=== PATIENT | male | born 1935 | race African-American/Black ===

== ENCOUNTER 2019-06-06 10:31 | Inpatient (IN) | payer OTHER ==
[~2019-06-06] VITALS: Ht 180.3 cm; Wt 64.6 kg
[2019-06-06 11:29] LABS: Urine Bacteria MANY /hpf (None Seen); Urine Blood 2+ /uL (Negative); Urine Specific Gravity 1.022 (1.001-1.035); Urine WBC 265 /hpf (0 - 3); Urine WBC Clumps PRESENT /hpf (None Seen)
[2019-06-06 11:32] LABS: Basophils # (auto) 0 uL; Basophils % (auto) 0.3 % (0.0-2.0); Eosinophils # (auto) 0 uL; Eosinophils % (auto) 0.6 % (0.0-7.0); Hemoglobin 11.6 g/dL (13.5-17.5); Lymphocytes # (auto) 1.4 uL; Lymphocytes % (auto) 24.2 % (10.0-50.0); Mean Corpuscular Hgb Conc. 33.1 g/dL (32.0-36.0); Mean Corpuscular Volume 90.8 fL (80.0-100.0); Monocytes # (auto) 0.5 uL; Neutrophils # (auto) 3.8 uL; Neutrophils % (auto) 65.9 % (37.0-80.0); Nucleated Red Blood Cells % 0.1 %; Platelet Count (auto) 238 10^3/uL (140-450); Red Blood Cells 3.85 10^6/uL (4.5-5.90); Red Cell Distribution Width 14.9 % (11.8-14.3); White Blood Cell 5.8 10^3/uL (4.4-10.8)
[2019-06-06 11:48] LABS: Partial Thromboplastin Time 26.1 sec (23.64-32.05)
[2019-06-06 11:57] LABS: Albumin 3.9 g/dL (3.4-5.0); Calcium 8.8 mg/dL (8.5-10.1); Magnesium 2.4 mg/dL (1.6-2.6); Potassium 3.5 mmol/L (3.5-5.1)
[2019-06-06 12:02] LABS: BUN/Creatinine Ratio 15.7; Bilirubin, Total 0.6 mg/dL (0.2-1.0); Total Protein 8.2 g/dL (6.4-8.2)
[2019-06-06] MEDS ORDERED: cefTRIAXone 1GM/50ML D5W 50 ML IV ONE ×2 (13:30→14:15)
[2019-06-06] MEDS ORDERED: MORPHINE SULF INJ 2 MG/ML SYRINGE 1ML IV PRN (14:15)
[2019-06-06] MEDS ORDERED: ONDANSETRON HCL 4 MG/2 ML VIAL IV PRN (14:15)
[2019-06-06] MEDS ORDERED: ACETAMINOPHEN 500 MG TAB PO PRN (14:15)
[2019-06-06] MEDS ORDERED: NITROGLYCERIN 0.4 MG SL TAB SL PRN (14:15)
[2019-06-06] MEDS ORDERED: TEMAZEPAM 15 MG CAP PO PRN (14:15)
[2019-06-06] MEDS: SODIUM CHLORIDE 0.9% 1,000 ML IV SCH (14:26)
[2019-06-06 16:31] VITALS: BP 111/76
--- NOTE | 2019-06-06 16:48 | NUR ---
Discontinue Telemetry as ordered by Dr. Rojas, keep on Med/Surg.
--- NOTE | 2019-06-06 17:46 | NUR ---
Telemetry admit from [facility] admitted to Telemetry unit after SBAR received. Patient oriented to Bety Moore, primary RN, unit, room, bed, and unit policies regarding patient care and visiting hours. Patient now on continuous telemetry monitoring, tele box # [id number] and telemetry reading on arrival to unit is [id number]. Patient placed on bedside oxygen, weighed by bedscale and encouraged to call if they need something. All questions and concerns addressed, patient verbalized understanding.
--- NOTE | 2019-06-06 18:38 | NUR ---
Urology consult Dr. yLons at bedside, patient is advised. Orders received. May not have the CBI from urology standpoint. Patient needs to follow up with urology in 2 weeks. Patient also refused de la cruz catheter insertion and said he is able to urinate good.
--- NOTE | 2019-06-06 20:00 | NUR ---
Opening Shift Note Assumed care of patient, awake and alert. No S/S of distress/SOB or pain. Instructed on POC and to call for assist PRN, will continue to monitor for changes Q1hr and PRN.
[2019-06-06 21:00] VITALS: BP 212/74
[2019-06-06] MEDS ORDERED: FAMOTIDINE 20 MG TAB PO SCH (22:00)
--- NOTE | 2019-06-06 22:50 | NUR ---
Continuation of Care Assumed care of patient from Nick RN for continuation of care. Patient lying in bed, eyes closed, respirations even and unlabored, appears asleep. No S/S of distress/SOB or pain. Bed in lowest locked position, side rails up x2, call light within reach. Instructed on POC and to call for assist PRN, will continue to monitor for changes Q1hr and PRN.
[2019-06-06 23:00] VITALS: BP 113/67
--- NOTE | 2019-06-06 23:00 | NUR ---
Blood pressure noted to be 212/74 with 65 heart rate. Blood pressure reassessed and found to be 113/67 with 58 heart rate. No s/s of distress. Will continue care.
[2019-06-07] MEDS: SODIUM CHLORIDE 0.9% 1,000 ML IV SCH ×2 (00:12→10:05)
[2019-06-07 04:30] VITALS: BP 119/76
[2019-06-07 05:36] LABS: Basophils # (auto) 0 uL; Basophils % (auto) 0.3 % (0.0-2.0); Eosinophils # (auto) 0.1 uL; Eosinophils % (auto) 2.3 % (0.0-7.0); Hematocrit 30.6 % (41.0-53.0); Hemoglobin 10.2 g/dL (13.5-17.5); Lymphocytes # (auto) 1.7 uL; Lymphocytes % (auto) 33.5 % (10.0-50.0); Mean Corpuscular Hemoglobin 30.2 pg (28.0-32.0); Mean Corpuscular Hgb Conc. 33.2 g/dL (32.0-36.0); Monocytes # (auto) 0.4 uL; Monocytes % (auto) 8.4 % (0.0-12.0); Neutrophils # (auto) 2.9 uL; Neutrophils % (auto) 55.5 % (37.0-80.0); Nucleated Red Blood Cells % 0.1 %; Platelet Count (auto) 203 10^3/uL (140-450); Red Blood Cells 3.37 10^6/uL (4.5-5.90); Red Cell Distribution Width 14.6 % (11.8-14.3); White Blood Cell 5.2 10^3/uL (4.4-10.8)
[2019-06-07 06:05] LABS: Potassium 4.8 mmol/L (3.5-5.1)
[2019-06-07 06:10] LABS: Calcium 8.1 mg/dL (8.5-10.1)
--- NOTE | 2019-06-07 07:05 | NUR ---
Closing Note Patient lying in bed, awake and alert. Bed in lowest locked position, side rails up x2, call light within reach. No s/s of distress. Care endorsed to dayshift RN.
--- NOTE | 2019-06-07 07:15 | NUR ---
ASSUMED CARE OF PATIENT FROM DISTRICT MANAGER IN TRAINING RN. PATIENT IN BED, AWAKE AND WATCHING TV AT INITIAL APPROACH. PATIENT IS PLEASANT AND COOPERATIVE WITH ASSESSMENTS. PATIENT DENIES PAIN AT THIS TIME. NO SIGNS OF ACUTE DISTRESS NOTED. WILL CONTINUE TO MONITOR FOR CHANGES.
[2019-06-07 08:00] VITALS: BP 130/68
[2019-06-07] MEDS ORDERED: cefTRIAXone 1GM/50ML D5W 50 ML IV SCH (09:00)
--- NOTE | 2019-06-07 09:30 | NUR ---
Jeanne Dorsey oracle application consultant keycase assembler today and returned call, made her aware that patient has consult for [facility] to arrange for all outpatient follow ups.
--- NOTE | 2019-06-07 10:00 | NUR ---
Patient's urine noted to be pale pink in color. Continue care.
[2019-06-07 11:15] VITALS: BP 130/68
--- NOTE | 2019-06-07 12:30 | NUR ---
PATIENT DISCHARGED HOME AT THIS TIME PER MD'S ORDER. DISCHARGE SUMMARY AND FOLLOW UP INSTRUCTION PROVIDED AND PATIENT VERBALIZED UNDERSTANDING. PATIENT DISCHARGED IN GOOD CONDITION AND WITH ALL PERSONAL BELONGINGS. NO PHYSICAL COMPLAINS REPORTED.
--- NOTE | 2019-06-09 12:49 | NUR ---
Discharge planning per SS consult, patient has orders for [facility] to arrange all out patient follow up. Referral faxed to [facility] for processing. [phone]
== END 2019-06-07 12:30 | disposition home health service (06) | DRG 690 ==
LOC: ER 10:31 → CENTRAL 10:32
PROVIDERS: ADMIT Internal Medicine; ATTEND Internal Medicine
DX: N13.6 Pyonephrosis (principal); F17.200 Nicotine dependence, unspecified, uncomplicated; N40.0 Benign prostatic hyperplasia without lower urinary tract symptoms; Z80.0 Family history of malignant neoplasm of digestive organs; R31.9 Hematuria, unspecified; Z90.49 Acquired absence of other specified parts of digestive tract; Z88.0 Allergy status to penicillin
CPT/HCPCS: 36415; 51702; 74176; 80048; 80053; 81001; 83735; 84154; 85025; 85610; 85730; 87086; 93005; 96365; G0378; J0696

== ENCOUNTER 2022-08-18 06:24 | Inpatient (IN) | payer OTHER ==
[~2022-08-18] VITALS: Ht 180.3 cm; Wt 68.8 kg
[2022-08-18 08:00] VITALS: BP 126/67
[2022-08-18] MEDS ORDERED: TAMS0.4C36 PO (08:24)
[2022-08-18] MEDS ORDERED: ONDANSETRON HCL 4 MG/2 ML VIAL IV PRN ×2 (08:30→09:00)
[2022-08-18] MEDS ORDERED: hydrALAZINE HCL 20 MG/ML VL IV PRN (08:30)
[2022-08-18 09:00] VITALS: BP 126/67
[2022-08-18] MEDS ORDERED: ACETAMINOPHEN 325 MG TAB PO PRN (09:00)
[2022-08-18] MEDS ORDERED: MORPHINE SULFATE INJ 2 MG/ml SYRG IV PRN (09:00)
[2022-08-18] MEDS ORDERED: HYDROcodone-ACET 5/325MG TAB PO PRN (09:00)
[2022-08-18] MEDS ORDERED: NITROGLYCERIN 0.4 MG SL TAB SL PRN (09:00)
[2022-08-18] MEDS ORDERED: DOCUSATE SOD 100 MG CAP PO PRN (09:00)
[2022-08-18 09:59] LABS: Basophils # (auto) 0 10 ^3/uL (0-0.2); Eosinophils # (auto) 0.1 10 ^3/uL (0-0.8); Monocytes # (auto) 0.5 10 ^3/uL (0-1.3); Neutrophils % (auto) 67.7 % (37.0-80.0)
[2022-08-18 10:01] LABS: Basophils % (auto) 0.3 % (0.0-2.0); Eosinophils % (auto) 1.2 % (0.0-7.0); Hematocrit 27.6 % (41.0-53.0); Hemoglobin 9.2 g/dL (13.5-17.5); Lymphocytes # (auto) 1.6 10 ^3/uL (0.4-5.4); Lymphocytes % (auto) 23.2 % (10.0-50.0); Mean Corpuscular Hemoglobin 28.1 pg (28.0-32.0); Mean Corpuscular Hgb Conc. 33.4 g/dL (32.0-36.0); Mean Corpuscular Volume 84.1 fL (80.0-100.0); Monocytes % (auto) 7.6 % (0.0-12.0); Neutrophils # (auto) 4.8 10 ^3/uL (1.6-8.6); Red Blood Cells 3.28 10^6/uL (4.5-5.90); Red Cell Distribution Width 21.9 % (11.8-14.3); White Blood Cell 7.1 10^3/uL (4.4-10.8)
[2022-08-18] MEDS ORDERED: VANCOMYCIN PER PHARMACY 0 MG IV SCH (10:15)
[2022-08-18 10:27] LABS: Albumin 2.2 g/dL (3.4-5.0); BUN/Creatinine Ratio 7.3; Bilirubin, Total 0.4 mg/dL (0.2-1.0); Calcium 8.3 mg/dL (8.5-10.1); Magnesium 2.4 mg/dL (1.6-2.6); Phosphorus 2.8 mg/dL (2.5-4.90); Potassium 4.1 mmol/L (3.5-5.1); Total Protein 7.2 g/dL (6.4-8.2)
[2022-08-18] MEDS: levoFLOXacin 250MG 50 ML IV SCH (10:31)
[2022-08-18] MEDS: PANTOPRAZOLE 40 MG TAB PO SCH (10:31)
[2022-08-18 13:00] VITALS: BP 131/62
[2022-08-18] MEDS: VANCOMYCIN 1GM/250ML 250 ML IV SCH (13:40)
[2022-08-18] MEDS: SODIUM CHLOR 0.9% PF (SALINE LOCK) 10ML VIAL/SYR IV SCH ×2 (14:07→21:07)
[2022-08-18 16:39] VITALS: BP 111/55
[2022-08-18 20:00] VITALS: BP 108/55
[2022-08-18 22:00] VITALS: BP 108/55
[2022-08-19 05:00] VITALS: BP_SYST 150
[2022-08-19] MEDS: SODIUM CHLOR 0.9% PF (SALINE LOCK) 10ML VIAL/SYR IV SCH ×3 (05:06→21:20)
[2022-08-19 05:55] LABS: Basophils # (auto) 0 10 ^3/uL (0-0.2); Eosinophils # (auto) 0.1 10 ^3/uL (0-0.8)
[2022-08-19 05:57] LABS: Basophils % (auto) 0.6 % (0.0-2.0); Eosinophils % (auto) 1.6 % (0.0-7.0); Hematocrit 26.7 % (41.0-53.0); Hemoglobin 8.9 g/dL (13.5-17.5); Lymphocytes # (auto) 1.8 10 ^3/uL (0.4-5.4); Lymphocytes % (auto) 26.4 % (10.0-50.0); Mean Corpuscular Hemoglobin 28.2 pg (28.0-32.0); Mean Corpuscular Hgb Conc. 33.5 g/dL (32.0-36.0); Monocytes # (auto) 0.6 10 ^3/uL (0-1.3); Monocytes % (auto) 8.1 % (0.0-12.0); Neutrophils # (auto) 4.4 10 ^3/uL (1.6-8.6); Neutrophils % (auto) 63.3 % (37.0-80.0); Red Blood Cells 3.17 10^6/uL (4.5-5.90); Red Cell Distribution Width 22.2 % (11.8-14.3); White Blood Cell 6.9 10^3/uL (4.4-10.8)
[2022-08-19 06:20] LABS: Potassium 4.3 mmol/L (3.5-5.1)
[2022-08-19 06:25] LABS: BUN/Creatinine Ratio 12.8; Calcium 8.4 mg/dL (8.5-10.1)
[2022-08-19 06:27] LABS: Bilirubin, Total 0.4 mg/dL (0.2-1.0); Total Protein 6.9 g/dL (6.4-8.2)
[2022-08-19] MEDS: VANCOMYCIN 1GM/250ML 250 ML IV SCH (06:47)
[2022-08-19 08:00] VITALS: BP 123/59
[2022-08-19 09:00] VITALS: BP 123/59
[2022-08-19] MEDS: levoFLOXacin 250MG 50 ML IV SCH (10:21)
[2022-08-19] MEDS: PANTOPRAZOLE 40 MG TAB PO SCH (10:21)
[2022-08-19 13:14] VITALS: BP 111/70
[2022-08-19 16:54] VITALS: BP 120/72
[2022-08-19 22:00] VITALS: BP 99/53
[2022-08-20] MEDS: VANCOMYCIN 1GM/250ML 250 ML IV SCH ×2 (00:29→21:22)
[2022-08-20 05:00] VITALS: BP 114/58
[2022-08-20] MEDS: SODIUM CHLOR 0.9% PF (SALINE LOCK) 10ML VIAL/SYR IV SCH ×3 (05:20→22:04)
[2022-08-20 06:44] LABS: Hemoglobin 9.4 g/dL (13.5-17.5)
[2022-08-20 06:49] LABS: Basophils # (auto) 0 10 ^3/uL (0-0.2); Basophils % (auto) 0.4 % (0.0-2.0); Eosinophils # (auto) 0.1 10 ^3/uL (0-0.8); Eosinophils % (auto) 1.5 % (0.0-7.0); Hematocrit 27.4 % (41.0-53.0); Lymphocytes # (auto) 1.9 10 ^3/uL (0.4-5.4); Lymphocytes % (auto) 28.2 % (10.0-50.0); Mean Corpuscular Hemoglobin 28.8 pg (28.0-32.0); Mean Corpuscular Hgb Conc. 34.1 g/dL (32.0-36.0); Mean Corpuscular Volume 84.5 fL (80.0-100.0); Monocytes # (auto) 0.5 10 ^3/uL (0-1.3); Monocytes % (auto) 7.6 % (0.0-12.0); Neutrophils # (auto) 4.2 10 ^3/uL (1.6-8.6); Neutrophils % (auto) 62.3 % (37.0-80.0); Red Blood Cells 3.24 10^6/uL (4.5-5.90); White Blood Cell 6.7 10^3/uL (4.4-10.8)
[2022-08-20 06:53] LABS: Red Cell Distribution Width 22.2 % (11.8-14.3)
[2022-08-20 07:03] LABS: BUN/Creatinine Ratio 12.8; Calcium 8.7 mg/dL (8.5-10.1); Potassium 5.3 mmol/L (3.5-5.1)
[2022-08-20 08:00] VITALS: BP 123/59
[2022-08-20 08:30] VITALS: BP 120/62
[2022-08-20] MEDS: PANTOPRAZOLE 40 MG TAB PO SCH (09:53)
[2022-08-20 13:00] VITALS: BP 103/54
[2022-08-20 17:00] VITALS: BP 108/58
[2022-08-20 22:00] VITALS: BP 113/52
[2022-08-21 05:00] VITALS: BP 118/65
[2022-08-21] MEDS: SODIUM CHLOR 0.9% PF (SALINE LOCK) 10ML VIAL/SYR IV SCH ×3 (06:15→21:44)
[2022-08-21 08:00] VITALS: BP 123/59
[2022-08-21 09:00] VITALS: BP 115/66
[2022-08-21] MEDS: PANTOPRAZOLE 40 MG TAB PO SCH (09:38)
[2022-08-21 13:43] VITALS: BP 107/68
[2022-08-21] MEDS ORDERED: LACT10PA2 PO (15:13)
[2022-08-21] MEDS ORDERED: BACDST PO (15:13)
[2022-08-21] MEDS ORDERED: SODIUM CHLORIDE 0.9% 1,000 ML IV ONE (15:30)
[2022-08-21 16:41] VITALS: BP 123/72
[2022-08-21] MEDS: VANCOMYCIN 1GM/250ML 250 ML IV SCH (17:15)
[2022-08-21 22:00] VITALS: BP 128/65
[2022-08-22 05:00] VITALS: BP 123/73
[2022-08-22] MEDS: SODIUM CHLOR 0.9% PF (SALINE LOCK) 10ML VIAL/SYR IV SCH ×3 (05:07→21:14)
[2022-08-22 09:40] VITALS: BP 128/70
[2022-08-22 12:21] LABS: Urine Bacteria NONE SEEN /hpf (None Seen); Urine Blood TRACE /uL (Negative); Urine Specific Gravity 1.007 (1.001-1.035); Urine WBC 1 /hpf (0 - 3)
[2022-08-22 12:51] VITALS: BP 106/70
[2022-08-22 14:15] LABS: BUN/Creatinine Ratio 16.1; Calcium 9.4 mg/dL (8.5-10.1); Potassium 4.4 mmol/L (3.5-5.1)
[2022-08-22] MEDS ORDERED: VANCOMYCIN 1GM/250ML 250 ML IV SCH (17:00)
[2022-08-22 17:12] VITALS: BP 121/68
[2022-08-22] MEDS: SULFAMETHOX W/TRIMETH(800/160MG) DS TAB PO SCH (21:15)
[2022-08-22 22:24] VITALS: BP 112/70
[2022-08-23 04:30] VITALS: BP 122/66
[2022-08-23 04:35] LABS: Urine Bacteria NONE SEEN /hpf (None Seen); Urine Blood Negative /uL (Negative); Urine Specific Gravity 1.008 (1.001-1.035); Urine WBC 1 /hpf (0 - 3)
[2022-08-23] MEDS: SODIUM CHLOR 0.9% PF (SALINE LOCK) 10ML VIAL/SYR IV SCH ×3 (05:27→21:34)
[2022-08-23 05:46] LABS: Basophils # (auto) 0 10 ^3/uL (0-0.2); Basophils % (auto) 0.8 % (0.0-2.0); Eosinophils # (auto) 0.1 10 ^3/uL (0-0.8); Eosinophils % (auto) 2.2 % (0.0-7.0); Hemoglobin 9.8 g/dL (13.5-17.5); Lymphocytes # (auto) 2.1 10 ^3/uL (0.4-5.4); Lymphocytes % (auto) 33.2 % (10.0-50.0); Mean Corpuscular Hemoglobin 28.7 pg (28.0-32.0); Mean Corpuscular Hgb Conc. 33.7 g/dL (32.0-36.0); Mean Corpuscular Volume 85.2 fL (80.0-100.0); Monocytes # (auto) 0.5 10 ^3/uL (0-1.3); Monocytes % (auto) 7.7 % (0.0-12.0); Neutrophils # (auto) 3.5 10 ^3/uL (1.6-8.6); Neutrophils % (auto) 56.1 % (37.0-80.0); Nucleated Red Blood Cells % 0.1 %; Red Blood Cells 3.41 10^6/uL (4.5-5.90); White Blood Cell 6.3 10^3/uL (4.4-10.8)
[2022-08-23 05:52] LABS: Red Cell Distribution Width 23.1 % (11.8-14.3)
[2022-08-23 05:53] LABS: Albumin 2.7 g/dL (3.4-5.0); Calcium 8.9 mg/dL (8.5-10.1); Potassium 4.4 mmol/L (3.5-5.1)
[2022-08-23 05:58] LABS: Bilirubin, Total 0.3 mg/dL (0.2-1.0); Total Protein 7.9 g/dL (6.4-8.2)
[2022-08-23 08:34] VITALS: BP 125/71
[2022-08-23] MEDS: SULFAMETHOX W/TRIMETH(800/160MG) DS TAB PO SCH ×2 (09:59→21:28)
[2022-08-23 13:13] VITALS: BP 122/68
[2022-08-23 16:41] VITALS: BP 110/59
[2022-08-23 20:00] VITALS: BP 114/66
[2022-08-23 22:00] VITALS: BP 114/66
[2022-08-24] MEDS: SODIUM CHLOR 0.9% PF (SALINE LOCK) 10ML VIAL/SYR IV SCH ×2 (04:55→14:24)
[2022-08-24 05:00] VITALS: BP 130/64
[2022-08-24 08:31] VITALS: BP 131/71
[2022-08-24] MEDS: SULFAMETHOX W/TRIMETH(800/160MG) DS TAB PO SCH (10:11)
[2022-08-24 13:04] VITALS: BP 128/62
== END 2022-08-24 15:50 | disposition home or self-care (01) | DRG 699 ==
LOC: TELE-CENTR 06:24 → CENTRAL 08-22 23:42
PROVIDERS: ADMIT Internal Medicine; ATTEND Internal Medicine
DX: T83.022A Displacement of nephrostomy catheter, initial encounter (principal); N13.6 Pyonephrosis; D75.839 Thrombocytosis, unspecified; I10 Essential (primary) hypertension; N32.9 Bladder disorder, unspecified; R31.9 Hematuria, unspecified; B95.61 Methicillin susceptible Staphylococcus aureus infection as the cause of diseases classified elsewhere; N13.9 Obstructive and reflux uropathy, unspecified; F03.90 Unspecified dementia, unspecified severity, without behavioral disturbance, psychotic disturbance, mood disturbance, and anxiety; Z20.822 Contact with and (suspected) exposure to COVID-19; Y83.8 Other surgical procedures as the cause of abnormal reaction of the patient, or of later complication, without mention of misadventure at the time of the procedure; Z87.442 Personal history of urinary calculi; Z90.5 Acquired absence of kidney; Z80.0 Family history of malignant neoplasm of digestive organs; Z88.0 Allergy status to penicillin; Y92.89 Other specified places as the place of occurrence of the external cause
CPT/HCPCS: 36415; 74176; 80048; 80053; 80202; 81001; 82565; 83735; 84100; 85025; 87081; 87086; 87426; 97110; 97116; 97163; 97530; G0378